=== PATIENT | male | born 1980 | race Caucasian/White ===

== ENCOUNTER → 2017-12-10 | Outpatient (CLI) | payer BC ==
--- NOTE | 2017-12-11 10:14 | KCIC ---
EXAM: MRI right shoulder DATE: 12/10/2017 12:00 AM COMPARISON: None INDICATION: Right shoulder pain for 9 months, plays basketball TECHNIQUE: Multiplanar multisequence MR imaging of the right shoulder was performed without IV contrast. FINDINGS: There is marked AC joint edema most prominent within the distal clavicle and, to a lesser extent within the acromion. Associated small joint effusion is seen with extensive capsular/ligamentous edema. Subchondral linear T1 signal is seen within the distal clavicle suspicious for nondisplaced, incomplete fracture. Small osteophytes are seen at the AC joint. There is no AC joint offset. Coracoclavicular ligaments are preserved. No significant subacromial-subdeltoid bursal fluid. Rotator cuff is intact. Mild increased signal within the distal supraspinatus tendon a represent mild tendinosis. Normal rotator cuff muscle signal and bulk. Multiloculated cystic change is seen within the humeral head arising from the infraspinatus attachment of the greater tuberosity measuring 2.2 x 1 cm. Extra articular long head biceps tendon is seen within the bicipital groove. Intra-articular long head biceps tendon is normal in signal and morphology. On this nonarthrographic exam, no discrete labral tear is identified. No definite full-thickness cartilage defect is identified. IMPRESSION: 1. Marked edema centered at the AC joint however greater within the distal clavicle, with subtle suspected distal clavicular fracture, possibly stress fracture. Findings may also be sequelae of contusion or degenerative change. AC separation is felt to be less likely given congruent AC joint and normal appearance of the coracoclavicular ligaments. 2. Prominent intraosseous ganglion arising from the infraspinatus tendon attachment Electronically signed by: Christiano Bullock MD (12/11/2017 10:11 AM) [id number]
== END | disposition home or self-care (01) ==
LOC: KCIC MRI 17:00
PROVIDERS: ATTEND Orthopaedic Surgery
DX: S42.031A Displaced fracture of lateral end of right clavicle, initial encounter for closed fracture (principal); X58.XXXA Exposure to other specified factors, initial encounter; Y93.89 Activity, other specified; Y92.89 Other specified places as the place of occurrence of the external cause; Y99.8 Other external cause status
CPT/HCPCS: 73221